=== PATIENT | female | born 2000 | race Caucasian/White ===

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

== ENCOUNTER 2022-09-22 22:29 | Emergency (ER) | payer SELFPAY ==
[2022-09-22 22:51] VITALS: TEMP 98.4; O2SAT 97
[2022-09-22 23:28] LABS: BASOPHIL % 0.5 % (0.0-0.4); Basophil (Absolute #) 0.05 x10^3/uL (0-0.4); Eosinophil % 4.8 % (0.00-5.0); Eosinophil (Absolute #) 0.52 x10^3/uL (0-0.5); Hematocrit 48.9 % (42-50); Hemoglobin 16.2 g/dL (12.5-18.0); IMMATURE GRAN # 0.05 x10^3u/L (0.00-0.03); IMMATURE GRAN % 0.5 % (0.00-0.4); Lymphocyte (Absolute #) 2.87 x10^3/uL (1.0-4.6); Lymphocytes % 26.6 % (24.0-44.0); Mean Cell Volume 92.8 fL (78-100); Mean Corpuscular Hemoglobin 30.7 pg (26-32); Mean Corpuscular Hgb Concent. 33.1 g/dL (32-36); Mean Platelet Volume 8.7 fL (7.5-11.0); Monocyte (Absolute #) 0.81 x10^3/uL (0.0-1.3); Monocytes % 7.5 % (0.0-12.0); Neutrophil % 60.1 % (36.0-66.0); Platelet Count 411 x10^3/uL (150-450); Red Blood Count 5.27 x10^6/uL (4.1-5.6); Red Cell Distribution Width 12.3 % (11.5-14.0); White Blood Count 10.8 x10^3/uL (4.0-10.5)
[2022-09-22 23:45] LABS: ALKALINE PHOSPHATASE 92 U/L (38-126); ANION GAP 14.4 MEQ/L (5-15); BLOOD UREA NITROGEN 13 mg/dL (9-20); CHLORIDE 107 mmol/L (98-107); Calcium 8.9 mg/dL (8.4-10.2); Carbon Dioxide 22 mmol/L (22-30); Creatinine 1 0.87 mg/dL (0.66-1.25); EST GLOMERULAR FILTRATION RATE > 60.0 ML/MIN; Glucose 96 mg/dL (74-106); Potassium 3.7 mmol/L (3.5-5.1); SGOT/AST 17 U/L (17-59); SGPT/ALT 31 U/L (0-50); SODIUM 140 mmol/L (137-145)
--- NOTE | 2022-09-23 | ERPHSYRPT ---
- History of Present Illness Time Seen by Provider: 09/22/22 23:58 Exam Limitations: no limitations Patient Subjective Stated Complaint: pt states he has had a cough, headache for last 2 days. for last 1-2 hours pt has had chest heaviness and shortness of breath. Triage Nursing Assessment: pt alert and oriented. answers questions approp. pt ambulates into room with steady gait noted. respirations nonlabored with lungs cta bilat. skin warm and dry. Physician History: Patient is a 21-year-old biological female currently transitioning presents to our ED for evaluation of symptoms consistent with COVID. Patient states that she has been coughing experiencing some shortness of breath loss of taste and smell headache body aches and fatigue. Symptoms started 2 days ago. Patient states that she started developing chest heaviness approximately 1 to 2 hours prior to arrival. No trauma. No fever. Patient is otherwise healthy. Patient requesting to be tested for COVID. Patient voices no other complaints or concerns at this time. No obvious COVID contacts. Portions of this note were created with voice recognition technology. There may be grammatical, spelling, punctuation or sound alike errors Timing/Duration: day(s) (2 days) Severity: moderate Modifying Factors: Improves With: nothing Associated Symptoms: denies symptoms Allergies/Adverse Reactions: amoxicillin Allergy (Verified 09/22/22 22:49) Diarrhea Home Medications: Montelukast Sodium 10 mg [Singulair 10 MG] 10 mg PO DAILY 08/27/17 [History] Citalopram Hydrobromide [Citalopram HBr] mg PO DAILY 09/22/22 [History] Norethindrone Acetate [Norethindrone AC ([place])] 5 mg PO DAILY 09/22/22 [History] Testosterone Cypionate IM WEEKLY 09/22/22 [History] Hx Tetanus, Diphtheria Vaccination/Date Given: Yes Hx Influenza Vaccination/Date Given: No Hx Pneumococcal Vaccination/Date Given: No Immunizations Up to Date: Yes Travel Risk - International Travel Have you traveled outside of the country in past 3 weeks: No - Coronavirus Screening Are you exhibiting any of the following symptoms?: Yes Symptoms: Cough: New Onset, Shortness of Breath, Loss of Taste or Smell, Headaches/Body Aches/Fatigue Close contact with a COVID-19 positive Pt in past 14-21 Days: No - Vaccine Status Have you recieved a Covid-19 vaccination: Yes [employer]: [employer] - Review of Systems Constitutional: No Symptoms, No Fever, No Chills Eyes: No Symptoms Ears, Nose, & Throat: No Symptoms Respiratory: No Symptoms, No Cough, No Dyspnea Cardiac: No Symptoms, No Chest Pain, No Edema, No Syncope Abdominal/Gastrointestinal: No Symptoms, No Abdominal Pain, No Nausea, No Vomiting, No Diarrhea Genitourinary Symptoms: No Symptoms, No Dysuria Musculoskeletal: No Symptoms, No Back Pain, No Neck Pain Skin: No Symptoms, No Rash Neurological: No Symptoms, No Dizziness, No Focal Weakness, No Sensory Changes Psychological: No Symptoms Endocrine: No Symptoms Hematologic/Lymphatic: No Symptoms Immunological/Allergic: No Symptoms All Other Systems: Reviewed and Negative - Past Medical History Pertinent Past Medical History: Yes Psycho-Social History: Anxiety, Depression Other Medical History: pt assigned female at , identifies as male. on testoterone therapy at this time. no reassignment surgeries. - Past Surgical History Past Surgical History: Yes Neuro Surgical History: No Pertinent History Cardiac: No Pertinent History Respiratory: No Pertinent History Gastrointestinal: No Pertinent History Genitourinary: No Pertinent History Musculoskeletal: No Pertinent History, Orthopedic Surgery, Other Other Surgical History: T&A, Bilateral foot implants - Social History Smoking Status: Never smoker Exposure to second hand smoke: Yes Drug Use: none Patient Lives Alone: No - Nursing Vital Signs Nursing Vital Signs: Initial Vital Signs Temperature 98.4 F 09/22/22 22:31 Pulse Rate 106 H 09/22/22 22:31 Respiratory Rate 16 09/22/22 22:31 Blood Pressure 126/84 09/22/22 22:31 O2 Sat by Pulse Oximetry 97 09/22/22 22:31 Pain Scale Pain Intensity 0 - Physical Exam General Appearance: no apparent distress, alert Eye Exam: PERRL/EOMI, eyes nml inspection Ears, Nose, Throat Exam: normal ENT inspection, TMs normal, pharynx normal, moist mucous membranes Neck Exam: normal inspection, non-tender, supple, full range of motion Respiratory Exam: normal breath sounds, lungs clear, No respiratory distress Cardiovascular Exam: regular rate/rhythm, normal heart sounds, normal peripheral pulses Gastrointestinal/Abdomen Exam: soft, normal bowel sounds, No tenderness, No mass Back Exam: normal inspection, normal range of motion, No CVA tenderness, No vertebral tenderness Extremity Exam: normal inspection, normal range of motion, pelvis stable Neurologic Exam: alert, oriented x 3, cooperative, normal mood/affect, nml cerebellar function, nml station & gait, sensation nml, No motor deficits Skin Exam: normal color, warm, dry, No rash Lymphatic Exam: No adenopathy SpO2 Interpretation: normal SpO2: 97 O2 Delivery: Room Air - Course Nursing assessment & vital signs reviewed: Yes - Radiology Exams Chest X-ray Interpretation: Interpreted by me (Multiple small nodular radiopacities likely representing calcified granulomas.) Ordered Tests: Active Orders 24 hr Category Date Time Status EKG-ER Only STAT Care 09/22/22 23:04 Active IV Insertion STAT Care 09/22/22 23:04 Active CHEST 1 VIEW (PORTABLE) Stat Exams 09/22/22 23:06 Completed CBC W DIFF Stat Lab 09/22/22 23:20 Completed CMP Stat Lab 09/22/22 23:20 Completed D-DIMER QUANTITATIVE Stat Lab 09/22/22 23:20 Completed TROPONIN Q4H Lab 09/22/22 23:20 Completed TROPONIN Q4H Lab 09/23/22 03:15 Ordered TROPONIN Q4H Lab 09/23/22 07:15 Ordered Lab/Rad Data: Laboratory Result Diagrams 09/22/22 23:20 09/22/22 23:20 Laboratory Results 09/22/22 09/22/22 09/22/22 Range/Units 23:20 23:20 23:20 WBC (4.0-10.5) x10^3/uL RBC (4.1-5.6) x10^6/uL Hgb (12.5-18.0) g/dL Hct (42-50) % MCV (78-100) fL MCH (26-32) pg MCHC (32-36) g/dL RDW (11.5-14.0) % Plt Count (150-450) x10^3/uL MPV (7.5-11.0) fL Gran % (36.0-66.0) % Immature Gran % (Auto) (0.00-0.4) % Nucleat RBC Rel Count (0.00-0.1) % Eos # (Auto) (0-0.5) x10^3/uL Immature Gran # (Auto) (0.00-0.03) x10^3u/L Absolute Lymphs (auto) (1.0-4.6) x10^3/uL Absolute Monos (auto) (0.0-1.3) x10^3/uL Absolute Nucleated RBC (0.00-0.01) x10^3u/L Lymphocytes % (24.0-44.0) % Monocytes % (0.0-12.0) % Eosinophils % (0.00-5.0) % Basophils % (0.0-0.4) % Absolute Granulocytes (1.4-6.9) x10^3/uL Basophils # (0-0.4) x10^3/uL D-Dimer < 0.19 (0.0-0.50) mg/L Sodium (137-145) mmol/L Potassium (3.5-5.1) mmol/L Chloride (98-107) mmol/L Carbon Dioxide (22-30) mmol/L Anion Gap (5-15) MEQ/L BUN (9-20) mg/dL Creatinine (0.66-1.25) mg/dL Estimated GFR ML/MIN Glucose (74-106) mg/dL Calcium (8.4-10.2) mg/dL Total Bilirubin (0.2-1.3) mg/dL AST (17-59) U/L ALT (0-50) U/L Alkaline Phosphatase (38-126) U/L Troponin I < 0.012 (0.000-0.034) ng/mL Serum Total Protein (6.3-8.2) g/dL Albumin (3.5-5.0) g/dL Influenza Type A Ag NEGATIVE (NEGATIVE) Influenza Type B Ag NEGATIVE (NEGATIVE) RSV (PCR) NEGATIVE (NEGATIVE) SARS-CoV-2 (PCR) NEGATIVE (NEGATIVE) 09/22/22 09/22/22 Range/Units 23:20 23:20 WBC 10.8 H (4.0-10.5) x10^3/uL RBC 5.27 (4.1-5.6) x10^6/uL Hgb 16.2 (12.5-18.0) g/dL Hct 48.9 (42-50) % MCV 92.8 (78-100) fL MCH 30.7 (26-32) pg MCHC 33.1 (32-36) g/dL RDW 12.3 (11.5-14.0) % Plt Count 411 (150-450) x10^3/uL MPV 8.7 (7.5-11.0) fL Gran % 60.1 (36.0-66.0) % Immature Gran % (Auto) 0.5 H (0.00-0.4) % Nucleat RBC Rel Count 0.0 (0.00-0.1) % Eos # (Auto) 0.52 H (0-0.5) x10^3/uL Immature Gran # (Auto) 0.05 H (0.00-0.03) x10^3u/L Absolute Lymphs (auto) 2.87 (1.0-4.6) x10^3/uL Absolute Monos (auto) 0.81 (0.0-1.3) x10^3/uL Absolute Nucleated RBC 0.00 (0.00-0.01) x10^3u/L Lymphocytes % 26.6 (24.0-44.0) % Monocytes % 7.5 (0.0-12.0) % Eosinophils % 4.8 (0.00-5.0) % Basophils % 0.5 (0.0-0.4) % Absolute Granulocytes 6.50 (1.4-6.9) x10^3/uL Basophils # 0.05 (0-0.4) x10^3/uL D-Dimer (0.0-0.50) mg/L Sodium 140 (137-145) mmol/L Potassium 3.7 (3.5-5.1) mmol/L Chloride 107 (98-107) mmol/L Carbon Dioxide 22 (22-30) mmol/L Anion Gap 14.4 (5-15) MEQ/L BUN 13 (9-20) mg/dL Creatinine 0.87 (0.66-1.25) mg/dL Estimated GFR > 60.0 ML/MIN Glucose 96 (74-106) mg/dL Calcium 8.9 (8.4-10.2) mg/dL Total Bilirubin 0.50 (0.2-1.3) mg/dL AST 17 (17-59) U/L ALT 31 (0-50) U/L Alkaline Phosphatase 92 (38-126) U/L Troponin I (0.000-0.034) ng/mL Serum Total Protein 7.0 (6.3-8.2) g/dL Albumin 4.0 (3.5-5.0) g/dL Influenza Type A Ag (NEGATIVE) Influenza Type B Ag (NEGATIVE) RSV (PCR) (NEGATIVE) SARS-CoV-2 (PCR) (NEGATIVE) - Progress Progress: improved Progress Note: Patient is a 21-year-old biological female currently transitioning presents to our ED for evaluation of viral illness. Testing includes EKG which revealed normal sinus rhythm. Chest x-ray reveals multiple calcified granulomas. No acute findings otherwise. CBC CMP within normal limits. COVID testing negative . Negative RSV negative flu negative influenza. D-dimer negative. Troponin negative. Patient feels well at this point. No indication for further work-up. Will discharge home conservative management only. Work note provided as patient is likely contagious. Patient works in a fpc. Co nservative/supportive management at this time. Patient agrees to follow-up with primary care doctor within 48 hours for reevaluation. Portions of this note were created with voice recognition technology. There may be grammatical, spelling, punctuation or sound alike errors No critical care time Complex of data reviewed and analyzed is moderate. Test ordered. Test reviewed and analyzed. Clinical correlation made between findings and history and physical examination. The findings were used to make final disposition. Risk of complication and or risk morbidity/mortality patient management is low. We will discharge home. [id number] medications as needed. We discussed the importance of hydration. Patient understands importance of rest and quarantining from vulnerable populations such as those and fpc/patient's place of employment. Significant other at bedside. They voiced no other complaints or concerns at this time. Portions of this note were created with voice recognition technology. There may be grammatical, spelling, punctuation or sound alike errors 09/23/22 00:39 Counseled pt/family regarding: lab results, diagnosis, need for follow-up, rad results - Departure Departure Disposition: Home Clinical Impression: Calcified granuloma of lung, Viral syndrome Condition: Stable Critical Care Time: No Referrals: JANA ZAMORA [Primary Care Provider] - Follow up/PCP as directed Additional Instructions: Discharge/Care Plan NIMESH HURTADO was seen on 09/23/22 in the Emergency Room. The patient was counseled regarding Diagnosis,Lab results, Imaging studies, need for follow up and when to return to the Emergency Room. Prescriptions given: Discharge Note I have spoken with the patient and/or caregivers. I have explained the patient's condition, diagnosis and treatment plan based on the information available to me at this time. I have answered the patient's and/or caregiver's questions and addressed any concerns. The patient and/or caregivers have as good understanding of the patient's diagnosis, condition and treatment plan as can be expected at this point. The vital signs have been stable. The patient's condition is stable and appropriate for discharge from the emergency department. The patient will pursue further outpatient evaluation with the primary care physician or other designated or consulting physician as outlined in the discharge instructions. The patient and/or caregivers are agreeable to this plan of care and follow-up instructions have been explained in detail. The patient and/or caregivers have received these instruction. The patient/and or caregivers are aware that any significant change in condition or worsening of symptoms should prompt an immediate return to this or the closest emergency department or call 911.
[2022-09-23 00:04] LABS: INFLUENZA A NEGATIVE (NEGATIVE); INFLUENZA B NEGATIVE (NEGATIVE); RESPIRATORY SYNCTIAL VIRUS NEGATIVE (NEGATIVE); SARS-CoV-2 Xpert Express NEGATIVE (NEGATIVE)
[2022-09-23 00:15] VITALS: BP 116/84; PULSE 94; RESP 16
--- NOTE | 2022-09-23 00:15 | XRAY ---
CLINICAL HISTORY:Shortness of breath COMPARISON:None. TECHNIQUE:X-ray examination of the chest was performed in 1 view: Frontal view. FINDINGS: Multiple small nodular radiopaque shadows are seen in both lungs of almost similar sizes scattered in all zones suggestive of calcified granulomas. Heart size is within normal limits. Mediastinal and hilar shadows are normal. Cardiophrenic and costophrenic angles are clear. Visualized bones are unremarkable. IMPRESSION: No acute cardiopulmonary disease. Multiple small nodular radiopaque shadows are seen in both lungs scattered in all zones suggestive of calcified granulomas, an old infection sequelae. Electronically Signed by: Sangeeta Lawson MD. (09/22/2022 23:15:16 ANALYST)
== END 2022-09-23 00:54 | disposition home or self-care (01) ==
LOC: ED 22:29
DX: B34.9 Viral infection, unspecified (principal); J84.10 Pulmonary fibrosis, unspecified; R05.1 Acute cough; R06.02 Shortness of breath; R43.8 Other disturbances of smell and taste; R51.9 Headache, unspecified; M79.10 Myalgia, unspecified site; R53.83 Other fatigue; Z79.899 Other long term (current) drug therapy
CPT/HCPCS: 0241U; 36415; 71045; 80053; 84484; 85025; 85379; 93005; 99283

== ENCOUNTER 2023-08-13 14:53 | Emergency (ER) | payer OTHER ==
--- NOTE | 2023-08-13 16:04 | ERPHSYRPT ---
- History of Present Illness Time Seen by Provider: 08/13/23 16:04 Source: patient Exam Limitations: no limitations Patient Subjective Stated Complaint: Pt states "I think I am dehydrated. I have been vomiting and had diarrhea on and off for the past couple of days." Triage Nursing Assessment: Pt presented alert and oriented X 3, skin wpd. PT amb ulates with an upright steady gait, able to speak in clear full setences. PT resting comfortably on the bed. Physician History: The patient presents with a 2-day history of vomiting and diarrhea, which they attribute to dehydration. They deny hematemesis and hematochezia. They have not had any chest pain or dyspnea. They report feeling feverish, but have not taken their temperature. They have not noticed any changes in their urinary habits, but note that they urinate more frequently when they drink a lot of water at work. Timing/Duration: day(s) (2) Severity: mild Modifying Factors: Worsens With: movement Associated Symptoms: nausea, vomiting, chills, loss of appetite, weakness, No abdominal pain, No shortness of breath, No heartburn, No cough, No chest pain, No fever, No headaches Allergies/Adverse Reactions: amoxicillin Allergy (Verified 09/22/22 22:49) Diarrhea Home Medications: Testosterone Cypionate IM WEEKLY 09/22/22 [History] Hx Tetanus, Diphtheria Vaccination/Date Given: No Hx Influenza Vaccination/Date Given: No Hx Pneumococcal Vaccination/Date Given: No Immunizations Up to Date: No Travel Risk - International Travel Have you traveled outside of the country in past 3 weeks: No - Emerging Infectious Disease Are you exhibiting symptoms associated with any current EIDs: No - Review of Systems All Other Systems: Reviewed and Negative - Past Medical History Pertinent Past Medical History: Yes Psycho-Social History: Anxiety, Depression Other Medical History: pt assigned female at , identifies as male. on testoterone therapy at this time. no reassignment surgeries. - Past Surgical History Past Surgical History: Yes Neuro Surgical History: No Pertinent History Cardiac: No Pertinent History Respiratory: No Pertinent History Gastrointestinal: No Pertinent History Genitourinary: No Pertinent History Musculoskeletal: No Pertinent History, Orthopedic Surgery, Other Other Surgical History: T&A, Bilateral foot implants - Social History Smoking Status: Never smoker Exposure to second hand smoke: Yes Drug Use: none Patient Lives Alone: No - Social Determinants of Health Will the patient participate in the screening: Declined to provide - Nursing Vital Signs Nursing Vital Signs: Initial Vital Signs Temperature 97.8 F 08/13/23 15:51 Pulse Rate 89 08/13/23 15:51 Respiratory Rate 20 08/13/23 15:51 Blood Pressure 139/91 08/13/23 15:51 O2 Sat by Pulse Oximetry 98 08/13/23 15:51 Pain Scale Pain Intensity 0 - Physical Exam General Appearance: no apparent distress, obese Eye Exam: eyes nml inspection Ears, Nose, Throat Exam: normal ENT inspection Neck Exam: normal inspection, supple, full range of motion Respiratory Exam: normal breath sounds, lungs clear, airway intact, No respiratory distress Cardiovascular Exam: regular rate/rhythm, normal heart sounds, capillary refill <2 sec, No edema Gastrointestinal/Abdomen Exam: soft, normal bowel sounds, No tenderness, No distention, No mass, No guarding, No rebound Neurologic Exam: alert, oriented x 3, cooperative Skin Exam: warm, dry, pale SpO2 Interpretation: normal SpO2: 98 O2 Delivery: Room Air - Course Nursing assessment & vital signs reviewed: Yes Ordered Tests: Active Orders 24 hr Category Date Time Status IV Insertion STAT Care 08/13/23 16:04 Completed CBC W DIFF Stat Lab 08/13/23 15:55 Completed CMP Stat Lab 08/13/23 15:55 Completed LIPASE Stat Lab 08/13/23 15:55 Completed Lactic Acid Stat Lab 08/13/23 16:04 Completed UA W/RFX UR CULTURE Stat Lab 08/13/23 15:55 Completed Medication Summary Discontinued Medications Generic Name Dose Route Start Last Admin Trade Name Davidq PRN Reason Stop Dose Admin Sodium Chloride 1,000 mls @ 999 mls/hr 08/13/23 16:04 08/13/23 17:12 Sodium Chloride 0.9% 1000 Ml IV 08/13/23 17:04 Infused .Q1H1M STA Infusion Sodium Chloride Confirm 08/13/23 16:08 Sodium Chloride 0.9% 1000 Ml Administered 08/13/23 16:09 Dose 1,000 mls @ ud .ROUTE .STK-MED ONE Ondansetron HCl 4 mg 08/13/23 16:04 08/13/23 16:10 Ondansetron Hcl 4 Mg/2 Ml Vial IV 08/13/23 16:05 4 mg STAT ONE Administration Ondansetron HCl Confirm 08/13/23 16:08 Ondansetron Hcl 4 Mg/2 Ml Vial Administered 08/13/23 16:09 Dose 4 mg .ROUTE .K-MED ONE Lab/Rad Data: Laboratory Result Diagrams 08/13/23 15:55 08/13/23 15:55 Laboratory Results 08/13/23 08/13/23 08/13/23 Range/Units 16:04 15:55 15:55 WBC (4.23-9.07) x10^3/uL RBC (4.63-6.08) x10^6/uL Hgb (13.7-17.5) g/dL Hct (40.1-51.0) % MCV (79.0-92.2) fL MCH (25.7-32.2) pg MCHC (32.3-36.5) g/dL RDW (11.6-14.4) % Plt Count (163-337) x10^3/uL MPV (9.4-12.4) fL Gran % (34.0-67.9) % Immature Gran % (Auto) (0.001-0.429) % Nucleat RBC Rel Count (0.00-0.2) % Eos # (Auto) (0.04-0.54) x10^3/uL Immature Gran # (Auto) (0.001-0.031) x10^3u/L Absolute Lymphs (auto) (1.32-3.57) x10^3/uL Absolute Monos (auto) (0.30-0.82) x10^3/uL Absolute Nucleated RBC (0.00-0.012) x10^3u/L Lymphocytes % (21.8-53.1) % Monocytes % (5.3-12.2) % Eosinophils % (0.8-7.0) % Basophils % (0.2-1.2) % Absolute Granulocytes (1.78-5.38) x10^3/uL Basophils # (0.01-0.08) x10^3/uL Sodium 139 (135-145) mmol/L Potassium 4.1 (3.5-5.1) mmol/L Chloride 106 (98-107) mmol/L Carbon Dioxide 22 (22-30) mmol/L Anion Gap 15.0 (5-15) MEQ/L BUN 13 (9-20) mg/dL Creatinine 0.93 (0.66-1.25) mg/dL Estimated GFR 120.6 ML/MIN Glucose 91 (74-106) mg/dL Lactic Acid 1.2 (0.4-2.0) Calcium 9.8 (8.4-10.2) mg/dL Total Bilirubin 1.40 H (0.2-1.3) mg/dL AST 22 (17-59) U/L ALT 28 (0-50) U/L Alkaline Phosphatase 79 (38-126) U/L Serum Total Protein 8.7 H (6.3-8.2) g/dL Albumin 4.9 (3.5-5.0) g/dL Lipase 99 (23-300) U/L Urine Color Yellow (Yellow) Urine Appearance Clear (Clear) Urine pH 5.5 (4.6-8.0) Ur Specific [place] 1.025 (1.005-1.030) Urine Protein Negative (Negative) Urine Glucose (UA) Negative (Negative) mg/dL Urine Ketones Negative (Negative) Urine Blood Negative (Negative) Urine Nitrite Negative (Negative) Urine Bilirubin Negative (Negative) Urine Urobilinogen 0.2 (0.2) mg/dL Ur Leukocyte Esterase Small A (Negative) U Hyaline Cast (Auto) NONE SEEN (0-2) /LPF Urine Microscopic RBC 0-2 (0-5) /HPF Urine Microscopic WBC 3-5 (0-5) /HPF Ur Epithelial Cells None Seen (None Seen) /HPF Urine Bacteria None Seen (None Seen) /HPF Urine Culture Reflexed NO (NO) 08/13/23 Range/Units 15:55 WBC 8.0 (4.23-9.07) x10^3/uL RBC 5.83 (4.63-6.08) x10^6/uL Hgb 17.3 (13.7-17.5) g/dL Hct 50.2 (40.1-51.0) % MCV 86.1 (79.0-92.2) fL MCH 29.7 (25.7-32.2) pg MCHC 34.5 (32.3-36.5) g/dL RDW 12.6 (11.6-14.4) % Plt Count 412 H (163-337) x10^3/uL MPV 9.2 L (9.4-12.4) fL Gran % 53.2 (34.0-67.9) % Immature Gran % (Auto) 0.3 (0.001-0.429) % Nucleat RBC Rel Count 0.0 (0.00-0.2) % Eos # (Auto) 0.38 (0.04-0.54) x10^3/uL Immature Gran # (Auto) 0.02 (0.001-0.031) x10^3u/L Absolute Lymphs (auto) 2.62 (1.32-3.57) x10^3/uL Absolute Monos (auto) 0.62 (0.30-0.82) x10^3/uL Absolute Nucleated RBC 0.00 (0.00-0.012) x10^3u/L Lymphocytes % 32.9 (21.8-53.1) % Monocytes % 7.8 (5.3-12.2) % Eosinophils % 4.8 (0.8-7.0) % Basophils % 1.0 (0.2-1.2) % Absolute Granulocytes 4.25 (1.78-5.38) x10^3/uL Basophils # 0.08 (0.01-0.08) x10^3/uL Sodium (135-145) mmol/L Potassium (3.5-5.1) mmol/L Chloride (98-107) mmol/L Carbon Dioxide (22-30) mmol/L Anion Gap (5-15) MEQ/L BUN (9-20) mg/dL Creatinine (0.66-1.25) mg/dL Estimated GFR ML/MIN Glucose (74-106) mg/dL Lactic Acid (0.4-2.0) Calcium (8.4-10.2) mg/dL Total Bilirubin (0.2-1.3) mg/dL AST (17-59) U/L ALT (0-50) U/L Alkaline Phosphatase (38-126) U/L Serum Total Protein (6.3-8.2) g/dL Albumin (3.5-5.0) g/dL Lipase (23-300) U/L Urine Color (Yellow) Urine Appearance (Clear) Urine pH (4.6-8.0) Ur Specific [place] (1.005-1.030) Urine Protein (Negative) Urine Glucose (UA) (Negative) mg/dL Urine Ketones (Negative) Urine Blood (Negative) Urine Nitrite (Negative) Urine Bilirubin (Negative) Urine Urobilinogen (0.2) mg/dL Ur Leukocyte Esterase (Negative) U Hyaline Cast (Auto) (0-2) /LPF Urine Microscopic RBC (0-5) /HPF Urine Microscopic WBC (0-5) /HPF Ur Epithelial Cells (None Seen) /HPF Urine Bacteria (None Seen) /HPF Urine Culture Reflexed (NO) - Progress Progress: improved Progress Note: Acute Gastroenteritis: Reports of vomiting and diarrhea for the past few days. No blood in vomit or stool. Possible fever. No chest pain or dyspnea. -Order labs and start IV fluids. -Obtain urine sample to check for ketones and infection. -Discharge if patient feels better and labs are normal, otherwise continue neces jose g treatment. Labs unremarkable except for mildly elevated total bilirubin and small LE w/o urinary sxs. No need for any medication or imaging at this time. Patient reports sxs improvement after IVF bolus. Recommend consistent hydration when working in warm conditions. Counseled pt/family regarding: lab results, diagnosis - Departure Departure Disposition: Home Clinical Impression: Dehydration, Total bilirubin, elevated, Thrombocytosis Condition: Good Critical Care Time: No Referrals: JULIETA SPRNIG NP [Primary Care Provider] - Follow up/PCP as directed Instructions: Dehydration, Adult ED Forms: Work/School Release Form
[2023-08-13] MEDS ORDERED: Zofran 4 MG/2 ML VIAL ONE (16:08)
[2023-08-13] MEDS ORDERED: Sodium Chloride 0.9% 1000 ML 1,000 ML ONE (16:08)
[2023-08-13] MEDS: Zofran 4 MG/2 ML VIAL IV ONE (16:10)
[2023-08-13] MEDS: Sodium Chloride 0.9% 1000 ML 1,000 ML IV STA (16:10)
[2023-08-13 16:18] LABS: Absolute Neutrophil Ct (ANC) 4.25 x10^3/uL (1.78-5.38); Basophil (Absolute #) 0.08 x10^3/uL (0.01-0.08); Eosinophil % 4.8 % (0.8-7.0); Eosinophil (Absolute #) 0.38 x10^3/uL (0.04-0.54); Hematocrit 50.2 % (40.1-51.0); Hemoglobin 17.3 g/dL (13.7-17.5); IMMATURE GRAN # 0.02 x10^3u/L (0.001-0.031); IMMATURE GRAN % 0.3 % (0.001-0.429); Lymphocyte (Absolute #) 2.62 x10^3/uL (1.32-3.57); Lymphocytes % 32.9 % (21.8-53.1); Mean Cell Volume 86.1 fL (79.0-92.2); Mean Corpuscular Hemoglobin 29.7 pg (25.7-32.2); Mean Corpuscular Hgb Concent. 34.5 g/dL (32.3-36.5); Mean Platelet Volume 9.2 fL (9.4-12.4); Monocyte (Absolute #) 0.62 x10^3/uL (0.30-0.82); Monocytes % 7.8 % (5.3-12.2); Neutrophil % 53.2 % (34.0-67.9); Platelet Count 412 x10^3/uL (163-337); Red Blood Count 5.83 x10^6/uL (4.63-6.08); Red Cell Distribution Width 12.6 % (11.6-14.4)
[2023-08-13 16:21] LABS: Appearance Clear (Clear); Bacteria None Seen /HPF (None Seen); Bilirubin Negative (Negative); Blood Negative (Negative); Epithelial Cells None Seen /HPF (None Seen); Glucose, Urine Negative (Negative); Hyaline Casts NONE SEEN /LPF (0-2); Ketones Negative (Negative); Leukocyte Esterase Small (Negative); Nitrite Negative (Negative); Ph 5.5 (4.6-8.0); Protein,Urine Dip Negative (Negative); RBC 0-2 /HPF (0-5); Specific Gravity 1.025 (1.005-1.030); Urobilinogen 0.2 mg/dL (0.2)
[2023-08-13 16:22] LABS: ADD URINE CULTURE? NO (NO)
[2023-08-13 16:25] LABS: ALBUMIN 4.9 g/dL (3.5-5.0); BILIRUBIN,TOTAL 1.4 mg/dL (0.2-1.3); Calcium 9.8 mg/dL (8.4-10.2); Creatinine 1 0.93 mg/dL (0.66-1.25); EST GLOMERULAR FILTRATION RATE 120.6 ML/MIN; Potassium 4.1 mmol/L (3.5-5.1); Total Protein 8.7 g/dL (6.3-8.2)
[2023-08-13 17:08] VITALS: BP 126/80; PULSE 88; RESP 18; TEMP 97
[2023-08-13 22:58] VITALS: O2SAT 98
== END 2023-08-13 17:21 | disposition home or self-care (01) ==
LOC: ED 14:53
DX: E86.0 Dehydration (principal); E80.7 Disorder of bilirubin metabolism, unspecified; D75.839 Thrombocytosis, unspecified; R11.2 Nausea with vomiting, unspecified; R19.7 Diarrhea, unspecified; Z79.899 Other long term (current) drug therapy
CPT/HCPCS: 36000; 36415; 80053; 81001; 83605; 83690; 85025; 96374; 99284; J2405